=== PATIENT | female | born 1985 ===

== ENCOUNTER 2017-04-11 18:29 | Emergency (ER) | payer MEDICAID, SELFPAY ==
[2017-04-11 18:38] VITALS: BP 124/74; PULSE 80; RESP 16; TEMP 98.1; O2SAT 99
[2017-04-11] MEDS ORDERED: Lactated Ringer's 1,000 ML IV STA (18:54)
[2017-04-11 19:23] LABS: BASO # 0.1 K/uL (0.0-0.2); BASO % 0.6 % (0.0-2.0); EOS # 0.1 K/uL (0.0-0.7); EOS % 1.3 % (0.0-4.0); HEMATOCRIT 39.8 % (34.0-47.0); LYMPH # 2.3 K/uL (1.0-4.3); LYMPH % 22.4 % (20.0-40.0); MEAN CORPUSCULAR HEMOGLOBIN 27.7 pg (27.0-31.0); MEAN CORPUSCULAR HGB CONC 33.3 g/dL (33.0-37.0); MEAN PLATELET VOLUME 9.1 fl (7.2-11.7); MONO # 0.7 K/uL (0.0-0.8); MONO % 6.4 % (0.0-10.0); NEUT # 7.2 K/uL (1.8-7.0); NEUT % 69.3 % (50.0-75.0); RED CELL DISTRIBUTION WIDTH 12.9 % (11.5-14.5); WHITE BLOOD COUNT 10.4 K/uL (4.8-10.8)
--- NOTE | 2017-04-11 19:31 | ED PDOC ---
HPI: Abdomen Time Seen by Provider: 04/11/17 18:41 Chief Complaint (Nursing): Abdominal Pain Chief Complaint (Provider): Left Sided Pelvic Pain History Per: Patient History/Exam Limitations: no limitations Onset/Duration Of Symptoms: Days (x4 days) Outside of [place] travel?: No Current Symptoms Are (Timing): Still Present Additional Complaint(s): Ayse German, a 32 year old female, presents to the ED complaining of left sided pelvic pain since Tuesday. The patient states that the pain is associated with vaginal spotting which has resolved and yellowish vaginal discharge. She reports that she took a test on Tuesday and it was positive.The patient states she has had one other normal spontaneous vagina delivery 4 years ago. She says her last menstrual period was March 02. Denies nausea and vomiting. Patient goes to the clinic here at [place]. Abnormal Vaginal Bleeding: No Past Medical History Reviewed: Historical Data, Nursing Documentation, Vital Signs Vital Signs: Last Vital Signs Temp 98.1 F 04/11/17 18:35 Pulse 80 04/11/17 18:35 Resp 16 04/11/17 18:35 BP 124/74 04/11/17 18:35 Pulse Ox 99 04/11/17 21:16 - Medical History PMH: No Chronic Diseases - Surgical History Surgical History: No Surg Hx - Family History Family History: States: Unknown Family Hx - Social History Current smoker - smoking cessation education provided: No Ex-Smoker (has not smoked in the last 12 months): No Alcohol: None Drugs: Denies - Home Medications Home Medications: Ambulatory Orders Medication Instructions Recorded Ibuprofen [Motrin Tab] 600 mg PO Q8 PRN #30 tab 04/11/17 - Allergies Allergies/Adverse Reactions: Allergies Allergy/AdvReac Type Severity Reaction Status Date / Time No Known Allergies Allergy Verified 10/15/15 15:40 Review of Systems ROS Statement: Except As Marked, All Systems Reviewed And Found Negative (and as per HPI) Gastrointestinal: Negative for: Nausea, Vomiting Genitourinary Female: Positive for: Vaginal Discharge (yellowish vaginal discharge), Pelvic Pain (Left sided pelvic pain). Negative for: Dysuria, Frequency Physical Exam - Reviewed Nursing Documentation Reviewed: Yes Vital Signs Reviewed: Yes - Physical Exam Appears: Positive for: Well, No Acute Distress Head Exam: Positive for: ATRAUMATIC, NORMOCEPHALIC Skin: Positive for: Warm, Dry Eye Exam: Positive for: EOMI, PERRL Respiratory: Negative for: Accessory Muscle Use, Respiratory Distress Gastrointestinal/Abdominal: Positive for: Bowel Sounds, Soft, Tenderness. Negative for: Mass, Distended, Guarding, Rebound Pelvic Exam: Positive for: External Exam Normal, Discharge (white ), Tender Adnexa (LEFT, mild) Neurologic/Psych: Positive for: Alert. Negative for: Motor/Sensory Deficits - Laboratory Results Result Diagrams: 04/11/17 19:00 Urine POC: Negative - ECG O2 Sat by Pulse Oximetry: 99 (RA) Pulse Ox Interpretation: Normal Medical Decision Making Medical Decision Makin Initial Impression: 32 year old female presenting with pelvic pain and Differentials: UTI, Normal , Threatened , Ectopic , Ovarian cyst Initial Plan: * Type and Screen * Beta-HCG * Upreg * Udip * CBC * Chlamydia/GC RNA, TMA * Lactated Ringers 1000ml IV 1000ms/hr * US OB Transvaginal * Reevaluation 2048 US , Transvaginal Dictated by: Karl Agosto MD CLINICAL HISTORY: 32 years old, female; Pain; Other: Pelvic pain; Gestational age or lmp: 03/03/17 TECHNIQUE: Real-time transvaginal obstetrical ultrasound of the maternal pelvis and a first trimester with image documentation. Transvaginal imaging was used for better evaluation of the fetus and adnexa. COMPARISON: No relevant prior studies available. FINDINGS: Gestation: No intrauterine gestational sac. Uterus/cervix: Endometrium: 1.3 cm in thickness. Closed cervix. Ovaries: RIGHT ovary: 1.7 x 1.2 x 1.7 cm anechoic lesion. LEFT ovary: Normal. No adnexal masses. Free fluid: No significant free fluid. IMPRESSION: 1. No intrauterine gestation. DDX: Early IUP, missed , ectopic . 2. RIGHT ovarian cyst. 3. Incidental/non-acute findings are described above. Discussed with patient findings and plan of care. Scribe Attestation Documented by Ashley George acting as a scribe for Amy Soriano MD. Provider Attestation All medical record entries made by the Scribe were at my direction and personally dictated by me. I have reviewed the chart and agree that the record accurately reflects my personal performance of the history, physical exam, medical decision making, and the department course for this patient. I have also personally directed, reviewed, and agree with the discharge instructions and disposition. Disposition - Clinical Impression Clinical Impression: Ovarian cyst, Pelvic pain Counseled Patient/Family Regarding: Studies Performed, Diagnosis, Need For Followup, Rx Given - Disposition [facility] - [facility]18[facility]17 Disposition: Routine/Home Disposition Time: 20:50 Condition: GOOD Prescriptions: Ibuprofen [Motrin Tab] 600 mg PO Q8 PRN #30 tab PRN Reason: Pain, Moderate (4-7) Instructions: Ovarian Cyst (ED), Pelvic Pain (ED) Forms: [facility] (Panamanian) Print Language: EGYPTIAN
--- NOTE | 2017-04-11 20:50 | US ---
EXAM: US , Transvaginal CLINICAL HISTORY: 32 years old, female; Pain; Other: Pelvic pain; Gestational age or lmp: 03/03/17 TECHNIQUE: Real-time transvaginal obstetrical ultrasound of the maternal pelvis and a first trimester with image documentation. Transvaginal imaging was used for better evaluation of the fetus and adnexa. COMPARISON: No relevant prior studies available. FINDINGS: Gestation: No intrauterine gestational sac. Uterus/cervix: Endometrium: 1.3 cm in thickness. Closed cervix. Ovaries: RIGHT ovary: 1.7 x 1.2 x 1.7 cm anechoic lesion. LEFT ovary: Normal. No adnexal masses. Free fluid: No significant free fluid. IMPRESSION: 1. No intrauterine gestation. DDX: Early IUP, missed , ectopic . 2. RIGHT ovarian cyst. 3. Incidental/non-acute findings are described above.
== END 2017-04-11 21:34 | disposition home or self-care (01) ==
LOC: H.ER 18:29
DX: O26.891 Other specified pregnancy related conditions, first trimester (principal); N83.201 Unspecified ovarian cyst, right side
CPT/HCPCS: 76817; 81025; 84702; 85025; 86850; 86900; 87491; 87591; 96360; 99283; J7120

== ENCOUNTER 2017-04-21 00:52 | Emergency (ER) | payer MEDICAID ==
[2017-04-21 00:59] VITALS: TEMP 97.8; O2SAT 100
[2017-04-21] MEDS ORDERED: DiphenhydrAMINE 50 mg/ml Inj IV STA (01:31)
--- NOTE | 2017-04-21 01:35 | ED PDOC ---
HPI: Skin/Bite Injury Time Seen by Provider: 04/21/17 01:19 Chief Complaint (Nursing): Abnormal Skin Integrity Chief Complaint (Provider): rash History Per: Patient History/Exam Limitations: no limitations Onset/Duration Of Symptoms: Hrs Current Symptoms Are (Timing): Still Present Quality Of Symptoms: Itching Additional History Per: Patient Additional Complaint(s): 32 y/o female presents with diffuse pruritic rash x 7 hours. Denies facial swelling, difficulty speaking/swallowing, cough, chest pain, shortness of breath , palpitations, known allergen. Past Medical History Reviewed: Historical Data, Nursing Documentation, Vital Signs Vital Signs: Last Vital Signs Temp 97.8 F 04/21/17 00:56 Pulse 80 04/21/17 00:56 Resp 16 04/21/17 00:56 BP 131/71 04/21/17 00:56 Pulse Ox 100 04/21/17 01:35 - Medical History PMH: No Chronic Diseases - Surgical History Surgical History: No Surg Hx - Family History Family History: States: Unknown Family Hx - Home Medications Home Medications: Ambulatory Orders Medication Instructions Recorded Ibuprofen [Motrin Tab] 600 mg PO Q8 PRN #30 tab 04/11/17 Cetirizine HCl [Zyrtec] 10 mg PO DAILY #5 capsule 04/21/17 Famotidine [Pepcid] 20 mg PO BID #8 tab 04/21/17 Prednisone 50 mg PO DAILY #4 tablet 04/21/17 - Allergies Allergies/Adverse Reactions: Allergies Allergy/AdvReac Type Severity Reaction Status Date / Time No Known Allergies Allergy Verified 10/15/15 15:40 Review of Systems ROS Statement: Except As Marked, All Systems Reviewed And Found Negative Skin: Positive for: Rash Physical Exam - Reviewed Nursing Documentation Reviewed: Yes Vital Signs Reviewed: Yes - Physical Exam Appears: Positive for: Well, Non-toxic, No Acute Distress Head Exam: Positive for: ATRAUMATIC, NORMAL INSPECTION, NORMOCEPHALIC Skin: Positive for: Rash (diffuse hives) Eye Exam: Positive for: Normal appearance ENT: Positive for: Normal ENT Inspection Cardiovascular/Chest: Positive for: Regular Rate, Rhythm Respiratory: Positive for: Normal Breath Sounds Gastrointestinal/Abdominal: Positive for: Normal Exam Back: Positive for: Normal Inspection Extremity: Positive for: Normal ROM Neurologic/Psych: Positive for: Alert, Oriented - ECG O2 Sat by Pulse Oximetry: 100 - Progress ED Course And Treament: IV solumedrol, IV pepcid, IV benadryl On re-eval, rash improving. Patient educated on findings, discharged with rx Prednisone, Zyrtec, Pepcid. Advised follow up PMD 2-3 days. Return to ED for worsening/concerning symptoms. Disposition - Clinical Impression Clinical Impression: Urticaria Counseled Patient/Family Regarding: Diagnosis, Need For Followup, Rx Given - Disposition Referrals: [facility] [Outside] Disposition: Routine/Home Disposition Time: 03:10 Condition: IMPROVED Prescriptions: Cetirizine HCl [Zyrtec] 10 mg PO DAILY #5 capsule Famotidine [Pepcid] 20 mg PO BID #8 tab Prednisone 50 mg PO DAILY #4 tablet Instructions: Urticaria (ED) Forms: [facility] (Comoran) Print Language: FAROESE
[2017-04-21] MEDS ORDERED: DiphenhydrAMINE 50 mg/ml Inj ONE (01:38)
[2017-04-21 03:35] VITALS: BP 129/65; PULSE 86; RESP 18
== END 2017-04-21 03:36 | disposition home or self-care (01) ==
LOC: H.ER 00:52
DX: L50.9 Urticaria, unspecified (principal)

== ENCOUNTER 2017-12-13 08:55 | Emergency (ER) | payer MEDICAID ==
[2017-12-13 09:04] VITALS: BP 115/75; PULSE 96; RESP 18; TEMP 98.8; O2SAT 99
--- NOTE | 2017-12-13 10:02 | ED PDOC ---
History of Present Illness History of Present Illness: Ayse German is a 32 year old female, with no significant past medical history, who presents to the emergency department complaining of cough and sore throat onset for x4 days. Patient reports productive cough with white- yellowish phlegm. She took Tylenol, last dose was at 3am today. Patient is 12 weeks . She denies any fever, chills or other medical complaints. PMD: None provided. HPI: Influenza Time Seen by Provider: 12/13/17 09:20 Chief Complaint: Cough, Cold, Congestion Past Medical History Vital Signs: Last Vital Signs Temp 98.8 F 12/13/17 09:03 Pulse 96 H 12/13/17 09:03 Resp 18 12/13/17 09:03 BP 115/75 12/13/17 09:03 Pulse Ox 99 12/13/17 09:03 - Family History Family History: States: Unknown Family Hx - Home Medications Home Medications: Ambulatory Orders Medication Instructions Recorded Ibuprofen [Motrin Tab] 600 mg PO Q8 PRN #30 tab 04/11/17 Cetirizine HCl [Zyrtec] 10 mg PO DAILY #5 capsule 04/21/17 Famotidine [Pepcid] 20 mg PO BID #8 tab 04/21/17 Prednisone 50 mg PO DAILY #4 tablet 04/21/17 - Allergies Allergies/Adverse Reactions: Allergies Allergy/AdvReac Type Severity Reaction Status Date / Time No Known Allergies Allergy Verified 10/15/15 15:40 - ECG O2 Sat by Pulse Oximetry: 99 Disposition - Disposition
--- NOTE | 2017-12-13 10:05 | ED PDOC ---
HPI: CCC, URI, Sore Throat Time Seen by Provider: 12/13/17 09:20 Chief Complaint (Nursing): Cough, Cold, Congestion Chief Complaint (Provider): Sore throat and cough History Per: Patient History/Exam Limitations: no limitations Onset/Duration Of Symptoms: Days (x4) Current Symptoms Are (Timing): Still Present Location Of Pain: Throat Associated Symptoms: Sore Throat, Cough, Sputum (white-yellowish). denies: Fever, Chills Ear Symptoms: Bilateral: None Additional Complaint(s): Ayse German is a 32 year old female, with no significant past medical history, who presents to the emergency department complaining of cough and sore throat onset for x4 days. Patient reports productive cough with white- yellowish phlegm. She took Tylenol with minimal relief, last dose was at 3am today. Patient is 12 weeks . She denies any fever, chills or other medical complaints. PMD: None provided. Past Medical History Reviewed: Historical Data, Nursing Documentation, Vital Signs Vital Signs: Last Vital Signs Temp 98.8 F 12/13/17 09:03 Pulse 96 H 12/13/17 09:03 Resp 18 12/13/17 09:03 BP 115/75 12/13/17 09:03 Pulse Ox 99 12/13/17 10:06 - Medical History PMH: No Chronic Diseases - Surgical History Surgical History: No Surg Hx - Family History Family History: States: Unknown Family Hx - Social History Current smoker - smoking cessation education provided: No Alcohol: None Drugs: Denies - Home Medications Home Medications: Ambulatory Orders Medication Instructions Recorded Ibuprofen [Motrin Tab] 600 mg PO Q8 PRN #30 tab 04/11/17 Cetirizine HCl [Zyrtec] 10 mg PO DAILY #5 capsule 04/21/17 Famotidine [Pepcid] 20 mg PO BID #8 tab 04/21/17 Prednisone 50 mg PO DAILY #4 tablet 04/21/17 Loratadine [Claritin] 10 mg PO DAILY PRN #5 tab 12/13/17 - Allergies Allergies/Adverse Reactions: Allergies Allergy/AdvReac Type Severity Reaction Status Date / Time No Known Allergies Allergy Verified 10/15/15 15:40 Review of Systems ROS Statement: Except As Marked, All Systems Reviewed And Found Negative Constitutional: Negative for: Fever, Chills ENT: Positive for: Throat Pain Respiratory: Positive for: Cough (productive), Sputum (white-yellowish phlegm) Physical Exam - Reviewed Nursing Documentation Reviewed: Yes Vital Signs Reviewed: Yes - Physical Exam Appears: Positive for: Well, Non-toxic, No Acute Distress Head Exam: Positive for: ATRAUMATIC, NORMAL INSPECTION, NORMOCEPHALIC Skin: Positive for: Normal Color, Warm, Dry Eye Exam: Positive for: Normal appearance, EOMI, PERRL ENT: Positive for: Normal ENT Inspection. Negative for: Pharyngeal Erythema, Tonsillar Exudate, Tonsillar Swelling Neck: Positive for: Painless ROM, Supple Cardiovascular/Chest: Positive for: Regular Rate, Rhythm. Negative for: Murmur Respiratory: Positive for: Normal Breath Sounds. Negative for: Respiratory Distress Gastrointestinal/Abdominal: Positive for: Normal Exam, Soft. Negative for: Tenderness, Guarding, Rebound Extremity: Positive for: Normal ROM (upper and lower extremities). Negative for : Tenderness, Deformity, Swelling Neurologic/Psych: Positive for: Alert, Oriented. Negative for: Motor/Sensory Deficits - ECG O2 Sat by Pulse Oximetry: 99 (RA) Pulse Ox Interpretation: Normal Medical Decision Making Medical Decision Making: Initial Impression: URI Initial Plan: --Rapid Strep Group A Antigen --Reevaluation Scribe Attestation: Documented by Camilo Antonio, acting as a scribe for Angela Palacios MD Provider Scribe Attestation: All medical record entries made by the Scribe were at my direction and personally dictated by me. I have reviewed the chart and agree that the record accurately reflects my personal performance of the history, physical exam, medical decision making, and the department course for this patient. I have also personally directed, reviewed, and agree with the discharge instructions and disposition. Disposition - Clinical Impression Clinical Impression: URI (upper respiratory infection) - Disposition Referrals: [facility] [Outside] [facility] [Outside] Disposition: Routine/Home Disposition Time: 12:46 Condition: STABLE Prescriptions: Loratadine [Claritin] 10 mg PO DAILY PRN #5 tab PRN Reason: Allergy Symptoms Instructions: Viral Upper Respiratory Infection, Adult (DC) Forms: [employer] (Brazilian) Print Language: CZECH
== END 2017-12-13 12:49 | disposition home or self-care (01) ==
LOC: H.ER 08:55
DX: J06.9 Acute upper respiratory infection, unspecified (principal)

== ENCOUNTER 2018-06-07 17:44 | Emergency (ER) | payer MEDICAID, SELFPAY ==
[2018-06-07 19:59] LABS: SQUAMOUS EPITHIAL 1 /hpf (0-5); URINE BACTERIA OCC (<OCC); URINE BILIRUBIN NEGATIVE (NEGATIVE); URINE BLOOD NEGATIVE (NEGATIVE); URINE CLARITY CLOUDY (Clear); URINE COLOR YELLOW (YELLOW); URINE GLUCOSE (UA) NEG (Normal); URINE HYALINE CAST 0-2 /hpf (0-2); URINE LEUKOCYTE ESTERASE TRACE Leu/uL (Negative); URINE PROTEIN NEGATIVE (NEGATIVE); URINE UROBILINOGEN 0.2-1.0 mg/dL (0.2-1.0)
--- NOTE | 2018-06-07 20:03 | OBHP ---
Datetime: 06/07/2018 19:36 IP Admit Plan: Observation/Evaluation; Discharge home Extremities - PN: Normal Abdomen - PN: Normal Back - PN: Not Done Breast - PN: Not Done Lungs - PN: Normal Heart - PN: Normal Thyroid - PN: Not Done Neurologic - PN: Normal HEENT - PN: Normal General - PN: Normal Gestation - Est Wks by US: 36 +2 EGA AdmitDate IP: 36.5 Vital Signs Provider: Reviewed; Within Normal Limits IP Chief Complaint: Uterine contractions; Signs/symptoms UTI; Maternal discomfort Genitourinary Exam: Not Done DTRs - PN: Not Done
[2018-06-07] MEDS ORDERED: Benzocaine/Menthol SPRAY TOP PRN (20:26)
[2018-06-07] MEDS ORDERED: Oxytocin 30 UNIT 30 UNITS/500 ML BAG IV ONE (20:26)
[2018-06-08 02:08] VITALS: BP 111/70; PULSE 94; RESP 18; TEMP 99.2; O2SAT 100
[2018-06-08] MEDS ORDERED: Multivitamin With Minerals Tab PO SCH (09:00)
== END 2018-06-07 21:50 | disposition home or self-care (01) ==
LOC: H.EROB2 17:44
DX: O26.93 Pregnancy related conditions, unspecified, third trimester (principal); R10.2 Pelvic and perineal pain; Z3A.36 36 weeks gestation of pregnancy

== ENCOUNTER 2018-06-29 00:42 | Inpatient (IN) | payer MEDICAID, SELFPAY ==
[2018-06-29 01:47] VITALS: BMI 32.0
[2018-06-29] MEDS ORDERED: Oxytocin 30 UNIT 30 UNITS/500 ML BAG IV ONE (01:49)
[2018-06-29] MEDS ORDERED: OXYTOCIN/0.9 % NS 20 UNIT/1,000 ML BAG IV SCH (02:00)
[2018-06-29] MEDS: Lactated Ringer's 1,000 ML IV ONE ×2 (02:15→07:10)
[2018-06-29 02:35] LABS: HEMOGLOBIN 11.8 g/dL (12.0-16.0); MEAN CELL VOLUME 82.5 fl (81.0-99.0); MEAN CORPUSCULAR HGB CONC 32.7 g/dL (33.0-37.0); RBC 4.39 Mil/uL (3.80-5.20); RED CELL DISTRIBUTION WIDTH 13.6 % (11.5-14.5); WHITE BLOOD COUNT 7.8 K/uL (4.8-10.8)
[2018-06-29] MEDS: Lactated Ringer's 1,000 ML IV SCH ×2 (03:20→08:10)
[2018-06-29] MEDS ORDERED: Fentanyl/Bupivacaine HCl 250 ML EPI ONE (07:53)
[2018-06-29] MEDS ORDERED: Lidocaine 1% Inj (20ml) ONE (08:30)
[2018-06-29] MEDS ORDERED: Benzocaine/Menthol SPRAY TOP PRN ×2 (10:37→15:32)
--- NOTE | 2018-06-30 03:43 | OBDS ---
DELIVERY PERSONNEL Delivery Doctor: Tolu Funk MD Dag Sprayer: Roxanne Redman RN Anesthesiologist: hal Resident: gabby raphael MATERNAL INFORMATION Delivery Anesthesia: Epidural Medications in Delivery: pitocin 30 units after placenta Estimated Blood Loss (ml): 300 Maternal Complications: None Provider Comments: Normal spontaneous vaginal delivery. Patient delivered viable infant with Apgars of 9 and 9 at one and 5 minutes respectively. Placenta delivered spontaneously. Lacerations repaired, as above. Uterus firm and appropriately hemostatic fo llowing delivery. Patient tolerated delivery and repair well. No complications. Estimated blood loss 200 mL. LABOR SUMMARY EDC: 06/30/2018 00:00 No. Babies in Womb: 1 Attempted: No Labor Anesthesia: Epidural LABOR INFORMATION Reason for Induction: Not Applicable Onset of Labor: 06/29/2018 00:00 Complete Dilatation: 06/29/2018 09:00 (Annotations: Data stored by N on behalf of user) Group B Beta Strep: Negative Steroids Given: None Reason Steroids Not Administered: Not Applicable MEMBRANES Membranes Rupture Method: Spontaneous Rupture of Membranes: 06/29/2018 00:00 Length of Rupture (hrs): 9.62 Amniotic Fluid Color: Clear Amniotic Fluid Amount: Moderate Amniotic Fluid Odor: Normal STAGES OF LABOR Stage 1 hrs: 9 Stage 1 min: 0 Stage 2 hrs: 0 Stage 2 min: 37 Stage 3 hrs: 0 Stage 3 min: 8 Total Time in Labor hrs: 9 Total Time in Labor min: 45 VAGINAL DELIVERY Episiotomy: None Laceration Extension: Second Degree Laceration Type: Vaginal Laceration Repair: Not Applicable Laceration Repair Note: Second-degree midline perineal and vaginal laceration. Area infiltrated with 1% lidocaine. Laceration repaired with 2. 0 repeat without complication. Patient tolerated repair we ll. Initial Vag Sponge Count: 10 Final Vag Sponge Count: 10 Initial Vag Sharps Count: 2 Final Vag Sharps Count: 2 Sharps Count Correct: N/A Count Comment: all correct BABY A INFORMATION Delivery Date/Time: 06/29/2018 09:37 Method of Delivery: Vaginal Born in Route : Yes : N/A Forceps: N/A Vacuum Extraction: N/A Shoulder Dystocia : No SHOULDER DYSTOCIA BABY A Delivery Date/Time: 06/29/2018 09:37 PRESENTATION/POSITION BABY A Presentation: Cephalic Cephalic Presentation: Vertex Vertex Position: Left Occipital Anterior Breech Presentation: N/A PLACENTA INFORMATION BABY A Placenta Delivery Time : 06/29/2018 09:45 Placenta Method of Delivery: Spontaneous Placenta Status: Delivered SCORES BABY A Heart Rate 1 min: >100 bpm Resp Effort 1 min: Good Cry Reflex Irritability 1 min: Cough or Sneeze or Pulls Away Muscle Tone 1 min: Active Motion Color 1 min: Body Risco, Extremities Blue Resuscitation Effort 1 min: Tactile Stimulation SCORE 1 MIN: 9 Heart Rate 5 min: >100 bpm Resp Effort 5 min: Good Cry Reflex Irritability 5 min: Cough or Sneeze or Pulls Away Muscle Tone 5 min: Active Motion Color 5 min: Body Risco, Extremities Blue SCORE 5 MIN: 9 Heart Rate 10 min: >100 bpm Resp Effort 10 min: Good Cry Reflex Irritability 10 min: Cough or Sneeze or Pulls Away Muscle Tone 10 min: Active Motion Color 10 min: Completely Risco SCORE 10 MIN: 10 INFANT INFORMATION BABY A Gestational Age at Delivery: 39.0 Gestational Status: Term Outcome : Liveborn Infant Condition : Stable Infant Sex: Male IDENTIFICATION/MEDS BABY A ID Band Number: [id number] ID Band Location: Left Leg; Left Arm WEIGHT/LENGTH BABY A Infant Birthweight (gms): 3750 Weight (lb): 8 Weight (oz): 4 Infant Length Inches: 20.00 Infant Length cms: 50.8 CORD INFORMATION BABY A No. Cord Vessels: 3 Nuchal Cord : N/A Nuchal Cord Other: no True Knot: no Cord pH Baby Arterial: no Cord pH Baby Venous: no Cord Blood Taken: Yes Infant Suction: Mouth; Nose ASSESSMENT BABY A Infant Complications: None Physical Findings at Delivery: Within Normal Limits Respirations: Appears Normal Dumper Bulk System/ALS Called : No Care By: amy baeza rnc . marylu luther rn Transferred To: Remains with Mother
[2018-06-30 06:37] LABS: HEMOGLOBIN 10.3 g/dL (12.0-16.0); MEAN CELL VOLUME 84.1 fl (81.0-99.0); MEAN CORPUSCULAR HEMOGLOBIN 27.7 pg (27.0-31.0); MEAN CORPUSCULAR HGB CONC 32.9 g/dL (33.0-37.0); RBC 3.7 Mil/uL (3.80-5.20); WHITE BLOOD COUNT 8.5 K/uL (4.8-10.8)
[2018-06-30] MEDS ORDERED: Prenatal Multivit/Folic Acid/Iron Tab PO SCH (09:00)
--- NOTE | 2018-06-30 09:03 | OBPPN ---
Datetime: 06/30/2018 05:38 PP Pain Prov: Within normal limits PP Nausea Prov: Denies PP Flatus Prov: No PP BM Prov: No PP Breasts Prov: Not Done PP Heart Prov: Normal PP Lungs Prov: Normal PP Abdomen/Uterus Prov: Normal PP Lochia Prov: Normal PP Vulva/Perineum Prov: Normal PP CVA Tenderness Prov: Normal PP Extremities Prov: Normal PP C/S Incision Prov: Not Applicable PP Progress Prov: Normal PP Impression Prov: Normal progression PP Plan Prov: Continue present management PP Progress Note Prov: S: Patient seen this morning at bedside, she is now s/p on 06/29/18 , today is PPD 1. Pt reports no complaints today. Reports minimal abdominal pain but states is better with pain medication. She is tolerating PO intake w/o N/V, ambulating to bathroom without any diffic ulties, lochia is defined as minimal, Breast feeding w/o difficulty. Patient denies flatus and BM at this time. O: VS WNL PE: Patient is resting comfortably in her hospital bed. In no acute distress. HEENT: EOMI, Mucous membrane moist. RESP: Clear air entry bilaterally. CV: RRR, no murmurs, gallops or rubs. ABD: soft, non-tender, uterus firm below umbilicus LE: No edema, Catherine's negative. A/P: 33 y/o now s/p on 06/29/18, today is PPD1- normal post- progression. Patient is stable to be D/C home. - Encourage ambulation - Encourage to continue - PNV 1 tab PO daily - Ibuprofen 600mg 1 tab Q6h prn for mild-mod pain - Anticipate D/C tomorrow, 07/01/18 Dori Fong MD PGY1 Attending addendum: I saw and examined the patient myself this morning. I reviewed the resident note above and agree w / findings and management. Anticipate DC home tomorrow. f/u w/ Dr. Platt in 4-6wks. Declined circ. Amaya Knutson MD IP PP Procedures: None Vital Signs Provider PP: Reviewed; Within Normal Limits
[2018-06-30] MEDS: Prenatal Multivit/Folic Acid/Iron Tab PO SCH (09:11)
[2018-07-01] MEDS: Prenatal Multivit/Folic Acid/Iron Tab PO SCH (08:23)
--- NOTE | 2018-07-01 19:21 | OBDCSUM ---
Datetime: 07/01/2018 05:53 Discharge Comment, Provider: EGA: 39.6 weeks Diagnosis: 33 y/o , s/p on 06/29/18 @ 09:37. She delivered a baby female, Wt 3220g, 9/9 Summary: Patient is PPD2 with normal progression. No complications during post- period. Loch ia less than menses. Pt was able to pass gas but has not had BM, She is tolerating regular diet, Fund us firm below umbilicus, able to ambulate w/o any difficulties, voiding well, denies fever, chills, H A, SOB, N/V, calf pain. CBC post-: 10.3/31.2 Discharge Instructions: 1. Continue and increase 2. PNV 1 tab PO daily 3. Ibuprofen 600mg 1 tab PO Q6h prn for mild-mod pain 4. Pt is not interested in using contraception at this time. 5. Instructions given to patient: If excessive bleeding, return of pain or increasing pain and/or fever without relief from medication, go to ED 6. PT was urged if feeling sad, mood swing, depression, neglect of baby, suicidal thoughts, homici olga thought should go to ED or call 911 for help 7. Pt should go to her Primary care doctor if she has difficulty with 8. F/U post- visit in 6 weeks CHF clinic. Nyla Killian will be contacting you with an appo intment. Dori Fong MD PGY1 Attending Note: Patient was discussed with Resident and I agree with the above.
--- NOTE | 2018-07-01 19:22 | OBPPN ---
Datetime: 07/01/2018 05:52 PP Pain Prov: Within normal limits PP Nausea Prov: Denies PP Flatus Prov: Yes PP BM Prov: No PP Breasts Prov: Not Done PP Heart Prov: Normal PP Lungs Prov: Normal PP Abdomen/Uterus Prov: Normal PP Lochia Prov: Normal PP Vulva/Perineum Prov: Normal PP CVA Tenderness Prov: Normal PP Extremities Prov: Normal PP C/S Incision Prov: Not Applicable PP Progress Prov: Normal PP Impression Prov: Normal progression PP Plan Prov: Discharge PP Progress Note Prov: S: Patient seen this morning at bedside, she is now s/p on 06/29/18 , today is PPD 2. Pt reports no complaints today. Reports minimal abdominal pain but states is better with pain medication. She is tolerating PO intake w/o N/V, ambulating to bathroom without any diffic ulties, lochia is less than menses in volume, Breast feeding w/o difficulty. Patient reports flatus b ut no BM as of yet. O: VS WNL PE: Patient is resting comfortably in her hospital bed. In no acute distress. HEENT: EOMI, Mucous membrane moist. RESP: Clear air entry bilaterally. CV: RRR, no murmurs, gallops or rubs. ABD: soft, non-tender, uterus firm below umbilicus LE: No edema, Catherine's negative. A/P: 33 y/o now s/p on 06/29/18, today is PPD2- normal post- progression. Patient is stable to be D/C home. - Encourage ambulation - Encourage to continue - PNV 1 tab PO daily - Ibuprofen 600mg 1 tab Q6h prn for mild-mod pain - Anticipate D/C today, 07/01/18 Dori Fong MD PGY1 Attending Note: Patient was seen and discussed with the resident and I agree with the above assess ment. IP PP Procedures: None Vital Signs Provider PP: Reviewed; Within Normal Limits
[2018-07-01 22:37] VITALS: BP 104/60; PULSE 89; RESP 18; TEMP 97.8; O2SAT 96
== END 2018-07-01 13:20 | disposition home or self-care (01) | DRG 373 ==
LOC: H.EROB2 00:42 → H.L&D 01:47 → H.OB/GYN 12:00
PROVIDERS: ADMIT Obstetrics & Gynecology Gynecology; ATTEND Obstetrics & Gynecology Gynecology
PROC: 0KQM0ZZ Repair Perineum Muscle, Open Approach (ICD-10-PCS; principal; 2018-06-29)
PROC: 10E0XZZ Delivery of Products of Conception, External Approach (ICD-10-PCS; 2018-06-29)
PROC: 4A1HXCZ Monitoring of Products of Conception, Cardiac Rate, External Approach (ICD-10-PCS; 2018-06-29)
DX: O70.1 Second degree perineal laceration during delivery (principal); Z37.0 Single live birth; Z3A.39 39 weeks gestation of pregnancy

== ENCOUNTER 2018-12-30 14:07 | Emergency (ER) | payer SELFPAY ==
[2018-12-30 14:49] VITALS: BMI 28.7
--- NOTE | 2018-12-30 15:44 | ED PDOC ---
HPI: Abdomen Time Seen by Provider: 12/30/18 14:57 Chief Complaint (Nursing): Abdominal Pain Chief Complaint (Provider): Abdominal pain History Per: Patient History/Exam Limitations: no limitations Onset/Duration Of Symptoms: Days Outside of [place] travel?: No Current Symptoms Are (Timing): Still Present Location Of Pain/Discomfort: LUQ, LLQ Quality Of Discomfort: "Pain" Additional History Per: Patient Additional Complaint(s): 33yo female, otherwise well, comes to ER with left sided abdominal pain x 1 week. She also reports associated abdominal pain with 2 episodes of non-bloody and non-bilious vomiting today. patient states her LMP was in October. Otherwise no additional medical complaints. PMD: Clinic Abnormal Vaginal Bleeding: No Last Menstral Period: In October Past Medical History Reviewed: Historical Data, Nursing Documentation, Vital Signs Vital Signs: Last Vital Signs Temp 98.4 F 12/30/18 14:50 Pulse 88 12/30/18 14:50 Resp 18 12/30/18 14:50 BP 122/74 12/30/18 14:50 Pulse Ox 100 12/30/18 14:50 - Medical History PMH: No Chronic Diseases Denies: Depression, Diabetes, HTN - Surgical History Surgical History: No Surg Hx - Family History Family History: States: No Known Family Hx - Home Medications Home Medications: Ambulatory Orders Medication Instructions Recorded Vit No.126/Iron/Folic 1 tab PO DAILY 06/29/18 [Classic Tablet] Ibuprofen [Motrin Tab] 600 mg PO Q6 PRN #20 tab 06/30/18 Docusate Sodium [Colace] 100 mg PO BID #30 capsule 07/01/18 Ferrous Sulfate 325 mg PO DAILY #30 tablet 07/01/18 - Allergies Allergies/Adverse Reactions: Allergies Allergy/AdvReac Type Severity Reaction Status Date / Time No Known Allergies Allergy Verified 12/30/18 14:50 Review of Systems ROS Statement: Except As Marked, All Systems Reviewed And Found Negative Constitutional: Negative for: Fever, Chills Cardiovascular: Negative for: Chest Pain Respiratory: Negative for: Shortness of Breath Gastrointestinal: Positive for: Vomiting, Abdominal Pain. Negative for: Diarrhea Physical Exam - Reviewed Nursing Documentation Reviewed: Yes Vital Signs Reviewed: Yes - Physical Exam Appears: Positive for: Non-toxic, No Acute Distress Head Exam: Positive for: ATRAUMATIC, NORMAL INSPECTION, NORMOCEPHALIC Skin: Positive for: Normal Color Eye Exam: Positive for: Normal appearance, EOMI, PERRL Neck: Positive for: Supple Cardiovascular/Chest: Positive for: Regular Rate, Rhythm. Negative for: Tachycardia Respiratory: Positive for: Normal Breath Sounds. Negative for: Respiratory Distress Gastrointestinal/Abdominal: Positive for: Soft, Tenderness (mild left abdominal tenderness). Negative for: Mass, Distended, Guarding, Rebound Back: Positive for: Normal Inspection. Negative for: L CVA Tenderness, R CVA Tenderness Extremity: Positive for: Normal ROM. Negative for: Pedal Edema, Deformity Neurological/Psych: Positive for: Awake, Alert, Normal Tone, Oriented (x 3) - Laboratory Results Result Diagrams: 12/30/18 15:40 - ECG O2 Sat by Pulse Oximetry: 100 (RA) Pulse Ox Interpretation: Normal Medical Decision Making Medical Decision Making: Impression: 33yo female with abdominal pain in setting of late menses Plan: -- Labs -- UPreg -- US Transvaginal Upreg is positive. Time: 1810 US Transvaginal FINDINGS: GESTATION: Single live intrauterine gestation with a heart rate of approximately 124 bpm. Crandall-rump length 0.8 cm corresponding to 6 weeks and 5 days. Gestational sac diameter 2 cm corresponding to 6 weeks and 4 days. UTERUS: Unremarkable. No myometrial mass. CERVIX: Closed. Unremarkable. OVARIES: Unremarkable. No mass. FREE FLUID: No free fluid. IMPRESSION: Single live intrauterine gestation of approximately 6 weeks and 5 days. Close clinical correlation recommended and follow-up study recommended as clinically warranted. Time: 1828 --Labs reviewed, no clinically significant abnormalities. Patient is stable for discharge home. Diagnosis abdominal pain in early . Patient to follow up with [facility] and advised to only take Tylenol as needed. Scribe Attestation: Documented by Norma Flores acting as a scribe for Reinaldo Pride MD. Provider Attestation: All medical record entries made by the Scribe were at my direction and personally dictated by me. I have reviewed the chart and agree that the record accurately reflects my personal performance of the history, physical exam, medical decision making, and the department course for this patient. I have also personally directed, reviewed, and agree with the discharge instructions and disposition. Disposition - Clinical Impression Clinical Impression: Abdominal pain during - Disposition Disposition Time: 18:29 Condition: STABLE Instructions: Stomach Pain in Early Forms: [facility] (Kyrgyz) Print Language: MAORI
[2018-12-30 16:16] LABS: BASO % 0.3 % (0.0-2.0); EOS % 0.5 % (0.0-4.0); LYMPH # 1.4 K/uL (1.0-4.3); LYMPH % 16.9 % (20.0-40.0); MEAN CELL VOLUME 83.7 fl (81.0-99.0); MEAN CORPUSCULAR HEMOGLOBIN 27.7 pg (27.0-31.0); MEAN CORPUSCULAR HGB CONC 33.1 g/dL (33.0-37.0); MEAN PLATELET VOLUME 9.3 fl (7.2-11.7); MONO # 0.5 K/uL (0.0-0.8); MONO % 6.5 % (0.0-10.0); NEUT # 6.2 K/uL (1.8-7.0); NEUT % 75.8 % (50.0-75.0); RBC 4.74 Mil/uL (3.80-5.20); RED CELL DISTRIBUTION WIDTH 13.2 % (11.5-14.5); WHITE BLOOD COUNT 8.2 K/uL (4.8-10.8)
[2018-12-30 16:29] LABS: HEMOGLOBIN 13.1 g/dL (12.0-16.0)
[2018-12-30 16:30] LABS: SQUAMOUS EPITHIAL 4 /hpf (0-5); URINE BACTERIA RARE (<OCC); URINE BILIRUBIN NEGATIVE (NEGATIVE); URINE BLOOD NEGATIVE (NEGATIVE); URINE CLARITY SLIGHTY-CLOUDY (Clear); URINE COLOR YELLOW (YELLOW); URINE GLUCOSE (UA) NEG (NEGATIVE); URINE LEUKOCYTE ESTERASE MOD Leu/uL (Negative); URINE PROTEIN NEGATIVE (NEGATIVE); URINE UROBILINOGEN 0.2-1.0 mg/dL (0.2-1.0)
[2018-12-30 19:37] VITALS: BP 112/70; PULSE 70; RESP 16; TEMP 98.1; O2SAT 98
--- NOTE | 2018-12-31 13:25 | US ---
Date of service: 12/30/2018 PROCEDURE: OB Pelvic Ultrasound HISTORY: Abdominal pain in patient. LMP: 07/19/2019 COMPARISON: None available. FINDINGS: UTERUS: Single living intrauterine gestation. Gestational sac: MS D = 2.04 cm = 6 weeks 4 days Yolk sac = 0.45 cm pole: CRL = 0.8 cm = 6 weeks 5 days Heart rate: 124 BPM. age (Ultrasound estimated): 6 weeks 5 days +/-0 weeks 3 days Mari-gestational hemorrhage: None. Date of delivery (Ultrasound estimated) : 08/20/2019 Uterus measures 13.5 x 6.2 x 5.7 cm. Normal in size and appearance. CERVIX: Measures 4.1 x 3.2 x 2.5 cm. Long and closed. No cervical abnormality seen. RIGHT OVARY: Measures 3.4 x 4.0 x 2.0 cm. No mass lesion. Normal flow. LEFT OVARY: Measures cm. No solid mass. Normal flow. FREE FLUID: None. OTHER FINDINGS: None. IMPRESSION: Single living intrauterine gestation with average ultrasound age 6 weeks 5 days +/-0 weeks 3 days. Heart rate document at 1:24 BPM ARTIS based on average ultrasound age = 1208/20/2019
== END 2018-12-30 19:00 | disposition home or self-care (01) ==
LOC: H.ER 14:07
DX: O26.91 Pregnancy related conditions, unspecified, first trimester (principal); Z3A.01 Less than 8 weeks gestation of pregnancy; R10.2 Pelvic and perineal pain